=== PATIENT | female | born 1970 | race Caucasian/White ===

== ENCOUNTER 2017-03-23 08:07 | Emergency (ER) | payer OTHER ==
[2017-03-23 12:43] VITALS: BP 147/78
== END 2017-03-23 12:43 | disposition home or self-care (01) ==
LOC: ED 08:07
DX: S29.012A Strain of muscle and tendon of back wall of thorax, initial encounter (principal); X50.9XXA Other and unspecified overexertion or strenuous movements or postures, initial encounter; Y93.89 Activity, other specified; Y99.8 Other external cause status; Y92.89 Other specified places as the place of occurrence of the external cause
CPT/HCPCS: J1100; J1885